=== PATIENT | male | born 1985 | race Caucasian/White ===

== ENCOUNTER 2019-04-02 15:16 | Emergency (ER) | payer OTHER ==
[~2019-04-02] VITALS: Ht 188 cm; Wt 86.2 kg
[2019-04-02 15:18] VITALS: BP 146/81
[2019-04-02] MEDS ORDERED: FLEXERIL PO (15:22)
== END 2019-04-02 16:23 | disposition home or self-care (01) ==
LOC: ER 15:16
DX: S60.466A Insect bite (nonvenomous) of right little finger, initial encounter (principal); W57.XXXA Bitten or stung by nonvenomous insect and other nonvenomous arthropods, initial encounter; Y93.89 Activity, other specified; Y92.89 Other specified places as the place of occurrence of the external cause; Y99.8 Other external cause status